=== PATIENT | female | born 1985 | race Caucasian/White ===

== ENCOUNTER 2025-10-08 19:38 | Emergency (ER) | payer OTHER ==
[~2025-10-08] VITALS: Ht 167.6 cm; Wt 60.0 kg
[2025-10-08 19:50] VITALS: TEMP 99
[2025-10-08] MEDS ORDERED: FLUORESCEIN SODIUM 1 MG STRIP ONE (21:22)
[2025-10-08] MEDS: PROPARACAINE HCL 0.5% 15 ML OPHTHALMIC SOLUTION OD ONE (22:17)
[2025-10-08] MEDS ORDERED: TOBR5DRO44 OD (22:32)
[2025-10-08 22:55] VITALS: BP 109/67; PULSE 73; RESP 16; O2SAT 82
== END 2025-10-08 22:59 | disposition home or self-care (01) ==
LOC: EMS 19:38
DX: H10.89 Other conjunctivitis (principal); Z98.890 Other specified postprocedural states
CPT/HCPCS: 99283